=== PATIENT | male | born 1975 | race African-American/Black ===

== ENCOUNTER 2016-07-18 19:11 | Emergency (ER) | payer BC ==
[~2016-07-18] VITALS: Ht 188 cm; Wt 115.7 kg
[2016-07-18] MEDS ORDERED: IV NORMAL SALINE 1000ML BAG 1,000 ML IV SCH (19:28)
[2016-07-18] MEDS ORDERED: 0.9 % SODIUM CHLORIDE 10 ML DISP.SYRIN. IV PRN (19:30)
[2016-07-18 19:39] LABS: BASO % 1 % (0-3); EOS % 6 % (0-3); HEMATOCRIT 43.4 % (39.0-53.0); HEMOGLOBIN 14.7 g/dL (13.0-17.5); LYMPH % 40 % (24-48); MEAN CORPUSCULAR HEMOGLOBIN 30 pg (25-35); MEAN CORPUSCULAR HGB CONC 34 g/dL (31-37); MEAN CORPUSCULAR VOLUME 90 fL (79-100); MONO % 7 % (0-9); NEUT % 46 % (31-73); PLATELET COUNT 164 x10^3/uL (140-400); RED BLOOD COUNT 4.84 x10^6/uL (4.30-5.70); RED CELL DISTRIBUTION WIDTH 13.4 % (11.5-14.5); WHITE BLOOD COUNT 5.1 x10^3/uL (4.0-11.0)
--- NOTE | 2016-07-18 19:39 | PHYS DOC ---
Past Medical History Past Medical History: Hypertension Past Surgical History: No Surgical History Smokin Pack Per Day Alcohol Use: Occasionally Drug Use: Marijuana Adult General Chief Complaint Chief Complaint: NEURO SYMPTOMS/DEFICITS [facility] Vision is a pleasant 40-year-old male with history of hypertension who presents with a sudden onset of dizziness and blurred vision in the left eye and facial weakness. The symptoms began 3 3/2 hours prior to arrival with sudden onset with no headache or associated symptoms of weakness no stenting of his face dysarthria loss of vision or loss of sensation of the upper and lower extremities. Patient is noted difficulty keeping his vision focused in the left eye specifically. At symptoms like this in the past although it is a family history of early stroke and hypertension. Patient denies any head trauma denies any change in medications denies any fevers, chills. Does admit he's had URI symptoms for last several days be developing. Review of Systems Review of Systems Constitutional: Denies fever or chills [] Eyes: Has some double vision in the left eye. HENT: Denies nasal congestion or sore throat [] Respiratory: Denies cough or shortness of breath [] Cardiovascular: No additional information not addressed in HPI [] GI: Denies abdominal pain, nausea, vomiting, bloody stools or diarrhea [] : Denies dysuria or hematuria [] Musculoskeletal: Denies back pain or joint pain [] Integument: Denies rash or skin lesions [] Neurologic: He does have some focal weakness of his facial muscles with some mild dysarthria. Endocrine: Denies polyuria or polydipsia [] Current Medications Current Medications Current Medications Medications (Trade) Dose Ordered Sig/Allison Start Time Stop Time Status Last Admin Dose Admin Fluorescein Sodium (Ful-Tiff) 1 strip 1X ONCE 07/18/16 19:45 07/18/16 19:46 DC Sodium Chloride (Iv Sodium Chloride 0.9% 1000ml Bag) 1,000 ml @ 1,000 mls/hr Q1H 07/18/16 19:28 07/18/16 20:27 07/18/16 19:43 1,000 MLS/HR Sodium Chloride 10 ml 10 ml QSHIFT PRN 07/18/16 19:30 Tetracaine HCl (Tetracaine) 1 drop 1X ONCE 07/18/16 19:45 07/18/16 19:46 DC Allergies Allergies Allergies Coded Allergies Type Severity Reaction Last Updated Verified No Known Drug Allergies 08/20/14 No Physical Exam Physical Exam Constitutional: Well developed, well nourished, no acute distress, non-toxic appearance. [No tenderness over the temporal arteries] HENT: Patient has normal. The response to light and accommodation patient does have mild lateral gaze palsy with weakness in the lateral rectus of the left eye there is some injection to the eye itself minimal limbic injection pupil is not fixed and dusky. Globe is soft. Eyes: No discharge sclerae are muddy in appearance Neck: Normal range of motion, no tenderness, supple, no stridor. [] Cardiovascular:Heart rate regular rhythm, no murmur [] Lungs & Thorax: Bilateral breath sounds clear to auscultation [] Abdomen: Bowel sounds normal, soft, no tenderness, no masses, no pulsatile masses. [] Skin: Warm, dry, no erythema, no rash. [] Back: No tenderness, no CVA tenderness. [] Extremities: No tenderness, no cyanosis, no clubbing, ROM intact, no edema. [] Neurologic: Patient awake alert oriented 3 noted facial weakness in the upper and lower portions of the face with mild dysarthria and NIHSS 2 mild dysarthria and facial asymmetry. Asymmetry is noted on the right is also noted the patient is somewhat slow to respond to questions although his memory is intact seems ahead trouble finding words and explaining the past events. He seems to be arousable easily and easily focused. Psychologic: Affect normal, judgement normal, mood normal. [] Current Patient Data Vital Signs Vital Signs Date Time Temp Pulse Resp B/P Pulse Ox O2 Delivery O2 Flow Rate FiO2 07/18/16 20:06 70 16 159/94 94 Room Air 07/18/16 19:20 98.4 98.4 Lab Values Laboratory Tests Test 07/18/16 19:20 07/18/16 19:24 07/18/16 20:02 White Blood Count 5.1x10^3/uL (4.0-11.0) Red Blood Count 4.84x10^6/uL (4.30-5.70) Hemoglobin 14.7g/dL (13.0-17.5) Hematocrit 43.4% (39.0-53.0) Mean Corpuscular Volume 90fL (79-100) Mean Corpuscular Hemoglobin 30pg (25-35) Mean Corpuscular Hemoglobin Concent 34g/dL (31-37) Red Cell Distribution Width 13.4% (11.5-14.5) Platelet Count 164x10^3/uL (140-400) Neutrophils (%) (Auto) 46% (31-73) Lymphocytes (%) (Auto) 40% (24-48) Monocytes (%) (Auto) 7% (0-9) Eosinophils (%) (Auto) 6% (0-3) H Basophils (%) (Auto) 1% (0-3) Neutrophils # (Auto) 2.4x10^3uL (1.8-7.7) Lymphocytes # (Auto) 2.0x10^3/uL (1.0-4.8) Monocytes # (Auto) 0.4x10^3/uL (0.0-1.1) Eosinophils # (Auto) 0.3x10^3/uL (0.0-0.7) Basophils # (Auto) 0.0x10^3/uL (0.0-0.2) Sodium Level 143mmol/L (136-145) Potassium Level 3.7mmol/L (3.5-5.1) Chloride Level 106mmol/L (98-107) Carbon Dioxide Level 31mmol/L (21-32) Anion Gap 6 (6-14) Blood Urea Nitrogen 17mg/dL (8-26) Creatinine 1.6mg/dL (0.7-1.3) H Estimated GFR (Cockcroft-Gault) 57.9 BUN/Creatinine Ratio 11 (6-20) Glucose Level 96mg/dL (70-99) Calcium Level 8.8mg/dL (8.5-10.1) Total Bilirubin 0.8mg/dL (0.2-1.0) Aspartate Amino Transferase (AST) 25U/L (15-37) Alanine Aminotransferase (ALT) 28U/L (16-63) Alkaline Phosphatase 80U/L (46-116) Troponin I Quantitative 0.040ng/mL (0.000-0.055) Total Protein 7.0g/dL (6.4-8.2) Albumin 3.6g/dL (3.4-5.0) Albumin/Globulin Ratio 1.1 (1.0-1.7) Glucose (Fingerstick) 80mg/dL (70-99) Urine Opiates Screen Neg (NEG) Urine Methadone Screen Neg (NEG) Urine Barbiturates Neg (NEG) Urine Phencyclidine Screen Neg (NEG) Urine Amphetamine/Methamphetamine Neg (NEG) Urine Benzodiazepines Screen Neg (NEG) Urine Cocaine Screen Neg (NEG) Urine Cannabinoids Screen Pos (NEG) Urine Ethyl Alcohol Neg (NEG) Laboratory Tests 07/18/16 19:20 Laboratory Tests 07/18/16 19:20 possible EKG EKG [Patient's EKG time 19207/18/2016 demonstrates normal sinus rhythm, NE interval P waves normal QRS, T waves no ST segment changes consistent with acute coronary ischemia read by me.] Radiology/Procedures Radiology/Procedures [] Impressions: Signed PATIENT: SABI RIVAS ACCOUNT: [id number] : 1975 LOCATION: ER AGE: 40 SEX: M EXAM STATUS: PRE ER ORD. PHYSICIAN: MARY FRAZIER MD REASON: facial weakness unilateral vision changes PROCEDURE: CT CODE STROKE HEAD WO PROCEDURE Noncontrast head CT HISTORY Left facial droop since 1600 today. Facial weakness. Unilateral vision changes. TECHNIQUE Noncontrast axial cross sectional CT scanning of the head was performed. One or more of the following individualized dose reduction techniques were utilized for this study: 1. Automated exposure control 2. Adjustment of the mA and/or kV according to patient size 3. Use of iterative reconstruction technique COMPARISON None available. FINDINGS No acute intracranial hemorrhage or midline shift or mass-effect or hydrocephalus or extra-axial fluid collection is seen. No focal hypodense area is seen to indicate an acute infarct or edema radiographically. No skull fracture or pneumocephalus is seen. No opacification of the mastoid sinuses or the paranasal sinuses is seen. The maxillary sinuses are not completely seen in this study. IMPRESSION No acute intracranial abnormality is seen. Note-this critical result was called to the emergency room physician Dr. Frazier at 7:49 p.m. on July 18, 2016. Electronically signed by: Baron Soni MD (July 18, 2016 19:49:16) DICTATED and SIGNED BY: BARON SONI MD DATE: 07/18/161948 CC: MARY FRAZIER MD; NO PCP ~ Course & Med Decision Making Course & Med Decision Making Pertinent Labs and Imaging studies reviewed. (See chart for details) creening tool completed (time): Last known normal time: Allergies: [] Criteria for treating patient with IV r-TPA: For symptom onset of 3 hours or less answer questions 1-9: If any answer 1-9 is YES, the patient is NOT Candidate for IV r-TPA. 1. Evidence of intracranial hemorrhage on pretreatment CT. 2. Clinical presentation suggestive of subarachnoid hemorrhage, even with normal CT 3. Known arteriovenous malformation or aneurysm. 4. Recent (within 3 months), intracranial surgery, serious head trauma, or previous stroke. 5. History of intracranial hemorrhage. 6. On repeated measurements, systolic blood pressure >185 mmHg or diastolic blood pressure >110 mmHg at the time treatment is to begin, and pt requires aggressive treatment to reduce blood pressure to within these limits (see BP Management section of TPA orders). 7. Known bleeding diathesis, including but not limited to: A) Platelet count less than 100,000mm3 B) Current or recent use of oral anticoagulants (e.g. Warfarin Sodium) with an INR greater than 1.7 C) Administration of heparin within 48 hours preceding the onset of stroke and an elevated PTT 8. Evidence of active bleeding or acute trauma. 9. Patient or family refuse. Warning/Consideration: If any answer 10-18 is YES, evaluate increased risk versus benefit. 10. Minor neurological deficit or rapidly improving symptoms. 11. Patient was observed to have seizure at the same time of onset of stroke symptoms. 12. Abnormal blood glucose (less than 50 or greater than 400 mg/dL). 13. Patient has had major surgery or serious trauma, excluding head trauma, in previous 14 days. 14. History of gastrointestinal or urinary track hemorrhage within 21 days. 15. Post GA or pericarditis. 16. Recent arterial puncture at a noncompressible site. 17. Recent lumbar puncture. 18. . For symptoms greater than 3 hours but less than 4.5 hours duration: Warning/Consideration: If any answer 19-22 is YES, evaluate increased risk versus benefit. 19. Age greater than 80 years. 20. Current use of oral anticoagulants (e.g.Warfarin Sodium) regardless of protime. 21. Severe stroke (Baseline NIHSS Stroke Scale greater than 25). 22. Patient has both diabetes and history of stroke Initiate TPA (Alteplase)? [] Patient for changes not a candidate for TPA as in his symptoms have been going longer than 3 hours. I'm concerned based in his symptoms that he does have an issue with cranial nerves , which would be a brainstem lesion. Upon realizing even with negative head CT and cross findings on physical exam revealing possible brainstem lesion is immediately determined to call transfer center to transfer patient to [facility]. At approximately [address] HODGES neurologist on-call for stroke center at who agreed with assessment although his timetable of greater than 5 hours of symptoms left little option for acute treatment at this point in time there have to accept patient and apparently worked him up from their perspective. His blood pressure was stable 155/95 heart rate of 71 temperature sats normal. Patient denied discussed reason for disposition to [facility] family is happy with disposition and understands risks of transport as well as benefits from specialty care. We were going to call neurology in our hospital system here and given location of potential's brainstem injury we do not want a hold up patient' s transfer EMS was stretched to our facility here at 8:08 PM after accepting physician and Intal form was completed. Initial EMS rig was dispatched to another location from our ER we are now waiting for another ER dispatch rig adding 15 minutes to disposition time. Considering the fact that time his brain tissue we are asking EMS to dispatch another rig emergently to the ER. Call transfer center at 8:20 PM to confirm transfer accepting physician Dr. Servando LEGGETT. CT scan has been uploaded to the cloud his lab work as been printed off and will go with the patient. He is being packaged by EMS and will leave approximate 8:23 PM. Transfer Ctr[facility] Vicki triage nurse at approximately 8:28 PM who agrees with disposition4 past for labs vital signs and CT results on the cloud all of which were given done. Dragon Disclaimer Dragon Disclaimer This electronic medical record was generated, in whole or in part, using a voice recognition dictation system. Departure Departure Impression: Primary Impression: Brainstem stroke Additional Impressions: Hypertension Diplopia Facial palsy Disposition: 05 TRANSFER OTHER Condition: GUARDED Referrals: NO PCP (PCP) Critical Care Time Critical care time was [40] minutes exclusive of procedures. Problem Qualifiers MARY FRAZIER MD July 18, 2016 19:38
[2016-07-18] MEDS ORDERED: TETRACAINE 0.5% OPHTH SOLUTION 4ML BOTTLE. OS ONE (19:45)
[2016-07-18] MEDS ORDERED: FLUORESCEIN OPHTH TEST STRIP. OS ONE (19:45)
--- NOTE | 2016-07-18 19:50 | RAD ---
PROCEDURE Noncontrast head CT HISTORY Left facial droop since 1600 today. Facial weakness. Unilateral vision changes. TECHNIQUE Noncontrast axial cross sectional CT scanning of the head was performed. One or more of the following individualized dose reduction techniques were utilized for this study: 1. Automated exposure control 2. Adjustment of the mA and/or kV according to patient size 3. Use of iterative reconstruction technique COMPARISON None available. FINDINGS No acute intracranial hemorrhage or midline shift or mass-effect or hydrocephalus or extra-axial fluid collection is seen. No focal hypodense area is seen to indicate an acute infarct or edema radiographically. No skull fracture or pneumocephalus is seen. No opacification of the mastoid sinuses or the paranasal sinuses is seen. The maxillary sinuses are not completely seen in this study. IMPRESSION No acute intracranial abnormality is seen. Note-this critical result was called to the emergency room physician Dr. Monzon at 7:49 p.m. on July 18, 2016. Electronically signed by: John Soni MD (July 18, 2016 19:49:16)
[2016-07-18 19:51] LABS: CALCIUM 8.8 mg/dL (8.5-10.1); CREATININE 1.6 mg/dL (0.7-1.3); GFR 57.9; POTASSIUM 3.7 mmol/L (3.5-5.1)
[2016-07-18 19:56] LABS: ALBUMIN 3.6 g/dL (3.4-5.0); ALBUMIN/GLOBULIN RATIO 1.1 (1.0-1.7); TOTAL BILIRUBIN 0.8 mg/dL (0.2-1.0)
[2016-07-18 20:11] LABS: BILIRUBIN,URINE NEGATIVE (NEG); GLUCOSE,URINE NEGATIVE (NEG); NITRITE,URINE NEGATIVE (NEG); PROTEIN,URINE NEGATIVE (NEG-TRACE); UROBILINOGEN,URINE 0.2 mg/dL (0.2 mg/dL)
[2016-07-18 20:19] LABS: BARBITURATES NEG (NEG); BENZODIAZEPINES NEG (NEG); CANNABINOIDS POS (NEG); COCAINE NEG (NEG); METHADONE NEG (NEG); OPIATES NEG (NEG); PHENCYCLIDINE NEG (NEG)
[2016-07-18 20:23] LABS: BACTERIA,URINE 0 /HPF (0-FEW); RBC,URINE 0 /HPF (0-2); WBC,URINE 0 /HPF (0-4)
[2016-07-18 20:24] VITALS: BP 173/108
--- NOTE | 2016-07-19 06:48 | EKG ---
[facility] [address] [place] [address] Test Date: 2016-07-18 Test Time: 19:21:12 Pat Name: SABI RIVAS Department: Room: Gender: M [employer]: : 1975 Requested By: MARY FRAZIER Order Number: [id number] Reading MD: Flory Mathur Measurements Intervals [place] Rate: 61 P: -35 [place]: 172 QRS: 66 QRSD: 90 T: 11 QT: 416 QTc: 420 Interpretive Statements Sinus RHYTHM NORMAL ECG RI6.01 Unconfirmed report No previous ECG available for comparison Electronically Signed On 07-22-2016 17:35:17 CDT by Flory Mathur
== END 2016-07-18 20:29 | disposition short-term general hospital (02) ==
LOC: ER 19:11
DX: I63.8 Other cerebral infarction (principal); I10 Essential (primary) hypertension; H53.2 Diplopia; G51.0 Bell's palsy; F12.10 Cannabis abuse, uncomplicated; F17.200 Nicotine dependence, unspecified, uncomplicated
CPT/HCPCS: 36415; 70450; 80053; 81001; 82947; 84484; 85027; 85384; 93005; 96360; 99285; G0481; J7030